=== PATIENT | female | born 1965 | race Caucasian/White ===

== ENCOUNTER 2021-01-16 15:08 | Emergency (ER) | payer BC, SELFPAY ==
--- NOTE | 2021-01-16 15:09 | XRR_ITS ---
PROCEDURE INFORMATION: Exam: XR Right Shoulder Exam date and time: 01/16/2021 3:09 PM Age: 55 years old Clinical indication: Pain; Shoulder; Right; Additional info: Deformity from fixing her hair TECHNIQUE: Imaging protocol: XR Right shoulder. Views: 2 or more views. COMPARISON: No relevant prior studies available. FINDINGS: Bones/joints: Normal. Soft tissues: Normal. XR/XR shoulder RT min 2V* [id number] IMPRESSION: No acute osseous abnormalities of the right shoulder.
[2021-01-16 15:12] VITALS: BP 163/91; PULSE 89; RESP 16; TEMP 36.6; O2SAT 96; BMI 24.1
[2021-01-16 15:23] VITALS: BP 137/71; PULSE 73; O2SAT 95
--- NOTE | 2021-01-16 15:23 | ED_ITS ---
HPI - Extremity Injury (Upper) General: Chief Complaint: Extremity Injury, Upper Stated Complaint: DISLOCATED SHOULDER Time Seen by Provider: 01/16/21 15:09 Source: patient Mode of arrival: EMS Limitations: no limitations History of Present Illness: HPI narrative: 55 yo R handed female reports she dislocated her right shoulder and reduced it at home a little over a week ago. This morning she was brushing hair and feels like it dislocated again. She has no numbness/tingling. 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 Patient had fentanyl and dilaudid by EMS [employer]. complaint: injury to: right and shoulder Review of Systems Musc: Reports: joint pain, joint stiffness and limited range of motion; Denies: joint swelling or joint redness Skin/Breast: Denies: rash, erythema, skin swelling or sores Neuro: Denies: sensory changes Psych: Reports: anxiety Physical Exam Const: COMMON NORMALS: no limitations, alert and well nourished EXAM LIMITATIONS: no altered mental status GENERAL APPEARANCE: cooperative and well developed ORIENTATION/CONSCIOUSNESS: Yes awake; not confused Neck/C-Spine: COMMON NORMALS: no JVD GENERAL: Yes normal visual inspection and Yes trachea midline Resp: COMMON NORMALS: normal respiratory effort, No use of accessory muscles and clear to auscultation bilaterally EFFORT & INSPECTION: Yes able to speak in complete sentences and Yes symmetric chest movement AUSCULTATION: clear to auscultation bilaterally Cardio: COMMON NORMALS: no JVD Extremity: RIGHT UPPER EXTREMITY: Yes shoulder joint (scapular manipulation performed, gentle ROM of right shoulder performed) Right shoulder: Yes Right shoulder joint neurovascular exam (NVI, skin normal, no swelling) Neuro: SENSORIUM/ORIENTATION: Yes alert Psych: COMMON NORMALS: mental status grossly normal, cooperative and speech normal APPEARANCE: Yes grossly normal ATTITUDE: Yes Guarded attititude/behavior present ACTIVITY/MOTOR BEHAVIOR: Yes appropriate eye contact SPEECH: Yes normal speech MOOD & AFFECT: Yes anxious Skin: COMMON NORMALS: no rashes or lesions noted, turgor normal and no jaundice GENERAL SKIN EXAM: no rashes or lesions noted and turgor normal Course ED course: Xrays of right shoulder show no fracture, dislocation, or AC separation on my review. Radiology over-read pending. Place patient in shoulder immobilizer, f/u ortho. Vital Signs: Vital signs: Vital Signs Temperature 97.9 F 01/16/21 15:12 Pulse Rate 89 01/16/21 15:12 Respiratory Rate 16 01/16/21 15:12 Blood Pressure 163/91 01/16/21 15:12 Pulse Oximetry 96 01/16/21 15:12 MDM - Extremity Injury (Upper) MDM Narrative: Medical decision making narrative: ddx: AC joint injury, rotator cuff injury, dislocation, dislocation with reduction, fracture, glenoid injury. Patient is NVI. She is very anxious but after scapular manipulation I was able to place arm back in adduction and partial extension. No palpable deformity. Xray pending. Discharge Plan Discharge Condition: Stable Prescriptions: New naproxen 375 mg tablet 375 mg PO BID PRN (Reason: pain) 10 Days Qty: 20 RF: 0 Referrals: Soham Beverly DO [Physician] - 4-7 days (Reported shoulder dislocation at home. In shoulder immobilizer.) Discharge Diet: Usual diet Discharge Activity: Limit activity as instructed Patient Instructions: Shoulder Dislocation Exercises (GEN), Shoulder Dislocation (ED), Rotator Cuff Injury (ED) Activity Restrictions/Additional Instructions: Use shoulder immoblizer to rest the shoulder until follow-up with orthopedics this week. Do not lift anything or raise your arm overhead. Coding Level of Care Code ED It [employer] for Chg Fwd Exam Detailed
[2021-01-16 16:30] VITALS: PULSE 81; O2SAT 96
--- NOTE | 2021-01-16 16:45 | PC.NURSE ---
pt signed discharge paperwork, signature page accidentally disposed of
--- NOTE | 2021-01-17 10:01 | DCPLANNER ---
assistant guest services manager had message to schedule a follow up appointment for patient with ortho for right shoulder pain. assistant guest services manager called the ortho clinic, spoke with Shelia, gave clinic patients information. assistant guest services manager was told that patients information would be printed and reviewed. Clinic will jer patient with appointment information.
--- NOTE | 2021-01-18 08:20 | DCPLANNER ---
Patient has a follow up appointment scheduled for , January 20, 2021 at 1:[address] Beverly at [facility]. Clinic will call patient with appointment information.
--- NOTE | 2021-02-11 13:24 | DCPLANNER ---
Patient had a follow up appointment scheduled for 01.20.21 with ortho - patient did attend appointment.
== END 2021-01-16 16:25 ==
PROVIDERS: Emergency Provider Emergency Medicine
DX: M24.411 Recurrent dislocation, right shoulder (principal)
CPT/HCPCS: 29240; 73030; 99283

== ENCOUNTER 2021-02-23 08:00 | Outpatient (CLI) | payer BC, SELFPAY ==
--- NOTE | 2021-02-23 08:04 | MR_ITS ---
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 Mild degenerative changes at the AC joint. Mild thickening of the joint capsule and small osteophytes . There is a bone island in the distal clavicle. Very minimal encroachment upon the supraspinatus mus ingrid at the level of the glenoid. No significant subacromial or subdeltoid fluid. No os acromion. Roel ps tendon remains in the bicipital groove but there is increase fluid within the extracapsular tendon sheath. 2 mm insertion site tear of the supraspinatus tendon. There is also mild fraying and thickening of th e tendon distally with increased fluid. Subscapularis tendon and infraspinatus tendons appear normal. There is a very small amount increased signal at the insertion site of the distal infraspinatus tend on appears to be marrow edema and not a tendon tear. This is a tendon tear is 2 mm. No retraction. No muscle edema. There is a very small amount of marrow edema and cortical irregularity over the plastics plater ior lateral humeral head. There is mild thickening of the axillary pouch. Degenerative changes with l oss of cartilage along the glenoid. Abnormal signal in the anterior superior labrum consistent with a focal tear. MR/MR shoulder RT wo con* [id number] IMPRESSION: 1. 2 mm insertion site tear of the supraspinatus tendon. 2. Cortical irregularity with edema in the posterior lateral humeral head. 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 3. Anterior superior labral tear. 4. Biceps tendinopathy. 5. Degenerative changes along the glenoid with loss of cartilage. Very small a mount of marrow edema along the inferior glenoid. No fracture. 6. Thickening of the axillary pouch. 7. Increased fluid surrounding the humeral head.
== END 2021-02-23 08:01 | disposition home or self-care (01) ==
LOC: RADSHAW 08:02
PROVIDERS: Visit Provider Orthopaedic Surgery
DX: M24.411 Recurrent dislocation, right shoulder (principal); S46.811A Strain of other muscles, fascia and tendons at shoulder and upper arm level, right arm, initial encounter; S43.431A Superior glenoid labrum lesion of right shoulder, initial encounter; X58.XXXA Exposure to other specified factors, initial encounter
CPT/HCPCS: 73030; 73221